=== PATIENT | male | born 1955 | race African-American/Black ===

== ENCOUNTER 2020-09-28 17:30 | Inpatient (IN) ==
[2020-09-28] MEDS ORDERED: SODIUM CHLORIDE 0.9% 500 ML IV STA ×2 (20:01→21:41)
[2020-09-28 20:35] LABS: Basophils % 0.1 % (0.0-0.8); Immature Granulocytes % 0.4 %; Immature Granulocytes Absolute 0.03 #; Lymphocytes # 0.8 10*3/uL (1.4-4.0); Lymphocytes % 10.2 % (21.2-54.2); Mean Corpuscular HGB Conc 32.5 GM/DL (32-36); Mean Corpuscular Volume 82.6 FL (87-102); Mean Platelet Volume 10.9 FL (9.6-12.0); Neutrophils % 84.3 % (38.7-73.9); Platelet Count 274 T/CUMM (130-400); Red Blood Count 4.84 MC/CUMM (3.8-5.5); Red Cell Distribution Width 13.2 % (9.3-17.3); White Blood Count 7.6 T/CUMM (4-12)
[2020-09-28 21:06] LABS: Calcium 7.8 MG/DL (8.5-10.1); Potassium 3.9 MMOL/L (3.5-5.1)
[2020-09-28] MEDS ORDERED: cefTRIAXone 2,000 MG in SODIUM CHLORIDE 0.9% 100 ML IV STA (21:46)
[2020-09-28] MEDS ORDERED: AZITHROMYCIN INJ 500 MG in SODIUM CHLORIDE 0.9% 250 ML IV STA (21:47)
[2020-09-29] MEDS ORDERED: MELATONIN 3 MG TABLET PO PRN (01:05)
[2020-09-29] MEDS ORDERED: DEXTROSE 50% 25 GM/50 ML VIAL IV PRN (01:19)
[2020-09-29] MEDS ORDERED: GLUCAGON 1 MG VIAL IM PRN (01:19)
[2020-09-29] MEDS ORDERED: ONDANSETRON 4 MG/2 ML VIAL IV PRN (01:21)
[2020-09-29] MEDS ORDERED: ACETAMINOPHEN 325 MG TABLET PO PRN (01:21)
[2020-09-29] MEDS ORDERED: NON-FORMULARY MEDICATION (Insulin Degludec [Tresiba Flextouch U-200] 200 unit/mL (3 mL) In PRN (02:10)
[2020-09-29 05:22] LABS: Basophils % 0.2 % (0.0-0.8); Hemoglobin 11.9 GM/DL (14.0-18.0); Immature Granulocytes % 0.4 %; Immature Granulocytes Absolute 0.02 #; Lymphocytes # 0.8 10*3/uL (1.4-4.0); Mean Corpuscular HGB Conc 32.2 GM/DL (32-36); Mean Corpuscular Volume 82.8 FL (87-102); Mean Platelet Volume 10.8 FL (9.6-12.0); Monocytes % 5.5 % (1.7-12.7); Neutrophils % 79.9 % (38.7-73.9); Platelet Count 254 T/CUMM (130-400); Red Blood Count 4.47 MC/CUMM (3.8-5.5); Red Cell Distribution Width 13.2 % (9.3-17.3); White Blood Count 5.6 T/CUMM (4-12)
[2020-09-29 05:30] LABS: INR 1.2; PT Patient Result 12.7 SECS (10.5-12.0)
[2020-09-29 05:45] LABS: Albumin 1.9 G/DL (3.4-5.0); Bilirubin,Total 0.5 MG/DL (0.2-1.0); Calcium 7.9 MG/DL (8.5-10.1); Potassium 3.5 MMOL/L (3.5-5.1); Total Protein 6.3 G/DL (6.4-8.2)
[2020-09-29 05:49] LABS: Ferritin 142.5 ng/ml (26-388)
[2020-09-29] MEDS: INSULIN LISPRO 100 UNIT/ML SUBCUT SCH ×4 (08:03→21:04)
[2020-09-29] MEDS: DEXAMETHASONE 4 MG/1 ML VIAL IV SCH (08:10)
[2020-09-29] MEDS: lisinopriL 20 MG TABLET PO SCH (08:14)
[2020-09-29] MEDS: ENOXAPARIN 40 MG/0.4 ML SYRINGE SUBCUT SCH (08:14)
[2020-09-29] MEDS: FAMOTIDINE 20 MG TABLET PO SCH ×2 (08:14→21:04)
[2020-09-29] MEDS: amLODIPine 5 MG TABLET PO SCH (08:15)
[2020-09-29] MEDS: CHOLECALCIFEROL 1,000 UNIT TABLET PO SCH (08:15)
[2020-09-29] MEDS: ZINC GLUCONATE 50 MG TABLET PO SCH (08:15)
[2020-09-29] MEDS: CETIRIZINE 10 MG TABLET PO SCH (08:15)
[2020-09-29] MEDS: ASCORBIC ACID 500 MG TABLET PO SCH ×2 (08:15→21:04)
[2020-09-29] MEDS ORDERED: LOPERAMIDE 2 MG CAPSULE PO ONE (08:32)
[2020-09-29] MEDS ORDERED: atenoloL 25 MG TABLET PO SCH (09:00)
[2020-09-29] MEDS: ALBUTEROL INHALER 18 GM INH SCH ×2 (12:59→18:46)
[2020-09-29] MEDS: LATANOPROST 0.005% OPH SOLN 2.5 ML BOTTLE BOTH EYES SCH (21:03)
[2020-09-29] MEDS: atenoloL 25 MG TABLET PO SCH (21:04)
[2020-09-29] MEDS: TAMSULOSIN 0.4 MG CAPSULE PO SCH (21:04)
[2020-09-29] MEDS: cefTRIAXone 2,000 MG in SODIUM CHLORIDE 0.9% 100 ML IV SCH (23:05)
[2020-09-30] MEDS: ALBUTEROL INHALER 18 GM INH SCH ×4 (00:20→20:20)
[2020-09-30 05:13] LABS: Hematocrit 37.9 VOL% (42.0-52.0); Hemoglobin 12.4 GM/DL (14.0-18.0); Immature Granulocytes % 0.4 %; Immature Granulocytes Absolute 0.03 #; Lymphocytes # 0.8 10*3/uL (1.4-4.0); Lymphocytes % 11.2 % (21.2-54.2); Mean Corpuscular HGB Conc 32.7 GM/DL (32-36); Mean Corpuscular Volume 81.7 FL (87-102); Mean Platelet Volume 11.1 FL (9.6-12.0); Neutrophils % 84.4 % (38.7-73.9); Platelet Count 333 T/CUMM (130-400); Red Blood Count 4.64 MC/CUMM (3.8-5.5); Red Cell Distribution Width 13.2 % (9.3-17.3); White Blood Count 7.2 T/CUMM (4-12)
[2020-09-30 05:41] LABS: Albumin 1.9 G/DL (3.4-5.0); Bilirubin,Total 0.5 MG/DL (0.2-1.0); Calcium 7.7 MG/DL (8.5-10.1); Osmolality,Calculated 282.7 MOS/KG (273-304); Potassium 4.2 MMOL/L (3.5-5.1); Total Protein 5.9 G/DL (6.4-8.2)
[2020-09-30 05:47] LABS: Calcium 7.9 MG/DL (8.5-10.1); Osmolality,Calculated 281.8 MOS/KG (273-304); Potassium 3.8 MMOL/L (3.5-5.1)
[2020-09-30 05:55] LABS: Platelet Estimate Normal
[2020-09-30 05:56] LABS: Anisocytosis 1+; Burr Cells Few
[2020-09-30] MEDS: DEXAMETHASONE 4 MG/1 ML VIAL IV SCH (08:00)
[2020-09-30] MEDS: INSULIN LISPRO 100 UNIT/ML SUBCUT SCH ×4 (08:05→20:20)
[2020-09-30] MEDS: AZITHROMYCIN 250 MG TABLET PO SCH (08:06)
[2020-09-30] MEDS: ENOXAPARIN 40 MG/0.4 ML SYRINGE SUBCUT SCH (08:06)
[2020-09-30] MEDS: atenoloL 25 MG TABLET PO SCH ×2 (08:06→20:20)
[2020-09-30] MEDS: ASCORBIC ACID 500 MG TABLET PO SCH ×2 (08:06→20:20)
[2020-09-30] MEDS: amLODIPine 5 MG TABLET PO SCH (08:06)
[2020-09-30] MEDS: lisinopriL 20 MG TABLET PO SCH (08:06)
[2020-09-30] MEDS: CETIRIZINE 10 MG TABLET PO SCH (08:06)
[2020-09-30] MEDS: CHOLECALCIFEROL 1,000 UNIT TABLET PO SCH (08:06)
[2020-09-30] MEDS: FAMOTIDINE 20 MG TABLET PO SCH ×2 (08:06→20:20)
[2020-09-30] MEDS: ZINC GLUCONATE 50 MG TABLET PO SCH (08:06)
[2020-09-30] MEDS: TAMSULOSIN 0.4 MG CAPSULE PO SCH (20:20)
[2020-09-30] MEDS: LATANOPROST 0.005% OPH SOLN 2.5 ML BOTTLE BOTH EYES SCH (20:20)
[2020-09-30] MEDS: cefTRIAXone 2,000 MG in SODIUM CHLORIDE 0.9% 100 ML IV SCH (21:36)
[2020-10-01] MEDS: ALBUTEROL INHALER 18 GM INH SCH ×4 (01:25→21:27)
[2020-10-01] MEDS: INSULIN LISPRO 100 UNIT/ML SUBCUT SCH ×4 (07:43→21:27)
[2020-10-01] MEDS: DEXAMETHASONE 4 MG/1 ML VIAL IV SCH (08:00)
[2020-10-01] MEDS: ENOXAPARIN 40 MG/0.4 ML SYRINGE SUBCUT SCH (08:00)
[2020-10-01] MEDS: lisinopriL 20 MG TABLET PO SCH (08:01)
[2020-10-01] MEDS: ASCORBIC ACID 500 MG TABLET PO SCH ×2 (08:01→21:28)
[2020-10-01] MEDS: atenoloL 25 MG TABLET PO SCH ×2 (08:01→21:28)
[2020-10-01] MEDS: AZITHROMYCIN 250 MG TABLET PO SCH (08:01)
[2020-10-01] MEDS: CETIRIZINE 10 MG TABLET PO SCH (08:02)
[2020-10-01] MEDS: CHOLECALCIFEROL 1,000 UNIT TABLET PO SCH (08:02)
[2020-10-01] MEDS: FAMOTIDINE 20 MG TABLET PO SCH ×2 (08:02→21:28)
[2020-10-01] MEDS: amLODIPine 5 MG TABLET PO SCH (08:02)
[2020-10-01] MEDS: ZINC GLUCONATE 50 MG TABLET PO SCH (08:02)
[2020-10-01] MEDS ORDERED: ALPRAZolam 0.25 MG TABLET PO PRN (08:09)
[2020-10-01] MEDS ORDERED: MORPHINE 4 MG/1 ML VIAL IV PRN (08:09)
[2020-10-01] MEDS ORDERED: REMDESIVIR 200 MG in SODIUM CHLORIDE 0.9% 210 ML IV ONE (16:00)
[2020-10-01] MEDS: hydrALAZINE 20 MG/1 ML VIAL IV PRN (17:35)
[2020-10-01] MEDS: TAMSULOSIN 0.4 MG CAPSULE PO SCH (21:27)
[2020-10-01] MEDS: INSULIN GLARGINE 100 UNIT/ML SUBCUT SCH (21:27)
[2020-10-01] MEDS: ENOXAPARIN 60 MG/0.6 ML SYRINGE SUBCUT SCH (21:27)
[2020-10-01] MEDS: cefTRIAXone 2,000 MG in SODIUM CHLORIDE 0.9% 100 ML IV SCH (21:28)
[2020-10-01] MEDS: LATANOPROST 0.005% OPH SOLN 2.5 ML BOTTLE BOTH EYES SCH (21:28)
[2020-10-02] MEDS: ALBUTEROL INHALER 18 GM INH SCH ×4 (02:02→18:34)
[2020-10-02] MEDS: hydrALAZINE 20 MG/1 ML VIAL IV PRN (04:09)
[2020-10-02 05:00] LABS: Basophils # 0.1 10*3/uL (0.0-0.2); Basophils % 0.5 % (0.0-0.8); Hemoglobin 13.3 GM/DL (14.0-18.0); Immature Granulocytes % 1.7 %; Immature Granulocytes Absolute 0.21 #; Lymphocytes # 1.8 10*3/uL (1.4-4.0); Lymphocytes % 14.3 % (21.2-54.2); Mean Corpuscular HGB Conc 33.3 GM/DL (32-36); Mean Corpuscular Volume 79.4 FL (87-102); Monocytes % 6.4 % (1.7-12.7); Neutrophils % 77.1 % (38.7-73.9); Platelet Count 420 T/CUMM (130-400); Red Blood Count 5.04 MC/CUMM (3.8-5.5); Red Cell Distribution Width 13.2 % (9.3-17.3); White Blood Count 12.5 T/CUMM (4-12)
[2020-10-02 05:33] LABS: Alanine Aminotransferase 33 U/L (16-61); Albumin 1.8 G/DL (3.4-5.0); Alkaline Phosphatase 88 U/L (45-117); Aspartate Amino Transferase 41 U/L (0-37); Bilirubin,Total < 0.39 MG/DL (0.2-1.0); Blood Urea Nitrogen 35 MG/DL (7-18); Calcium 8.3 MG/DL (8.5-10.1); Carbon Dioxide 23 MMOL/L (21-32); Estimated Glom Filtration Rate 98 ML/MIN; Ferritin 178.7 ng/ml (26-388); Glucose 126 MG/DL (74-106); Osmolality,Calculated 282.8 MOS/KG (273-304); Potassium 4.1 MMOL/L (3.5-5.1); Sodium 137 MMOL/L (136-145)
[2020-10-02] MEDS: REMDESIVIR 100 MG in SODIUM CHLORIDE 0.9% 100 ML IV SCH (08:37)
[2020-10-02] MEDS: DEXAMETHASONE 4 MG/1 ML VIAL IV SCH (08:38)
[2020-10-02] MEDS: ZINC GLUCONATE 50 MG TABLET PO SCH (08:39)
[2020-10-02] MEDS: atenoloL 25 MG TABLET PO SCH ×2 (08:39→20:19)
[2020-10-02] MEDS: lisinopriL 20 MG TABLET PO SCH (08:39)
[2020-10-02] MEDS: CHOLECALCIFEROL 1,000 UNIT TABLET PO SCH (08:39)
[2020-10-02] MEDS: amLODIPine 5 MG TABLET PO SCH (08:39)
[2020-10-02] MEDS: ENOXAPARIN 60 MG/0.6 ML SYRINGE SUBCUT SCH ×2 (08:39→20:20)
[2020-10-02] MEDS: ASCORBIC ACID 500 MG TABLET PO SCH ×2 (08:40→20:18)
[2020-10-02] MEDS: AZITHROMYCIN 250 MG TABLET PO SCH (08:40)
[2020-10-02] MEDS: FAMOTIDINE 20 MG TABLET PO SCH ×2 (08:40→20:19)
[2020-10-02] MEDS: INSULIN LISPRO 100 UNIT/ML SUBCUT SCH ×4 (08:40→20:19)
[2020-10-02] MEDS: CETIRIZINE 10 MG TABLET PO SCH (08:40)
[2020-10-02] MEDS ORDERED: SODIUM CHLORIDE 0.9% 1,000 ML IV PRN (10:58)
[2020-10-02 18:37] VITALS: BP 197/90
[2020-10-02] MEDS: DOCUSATE SODIUM 100 MG CAPSULE PO SCH (20:18)
[2020-10-02] MEDS: TAMSULOSIN 0.4 MG CAPSULE PO SCH (20:19)
[2020-10-02] MEDS: INSULIN GLARGINE 100 UNIT/ML SUBCUT SCH (20:19)
[2020-10-02] MEDS: LATANOPROST 0.005% OPH SOLN 2.5 ML BOTTLE BOTH EYES SCH (20:20)
[2020-10-02] MEDS: cefTRIAXone 2,000 MG in SODIUM CHLORIDE 0.9% 100 ML IV SCH (22:14)
[2020-10-03] MEDS: ALBUTEROL INHALER 18 GM INH SCH ×4 (01:09→20:02)
[2020-10-03 03:25] LABS: ABG Base Excess 0.6 MMOL/L (-2.5-2.5); ABG HCO3 24.8 MMOL/L (20-26); ABG Oxygen Saturation 92.4 % (95-100); ABG PH 7.463 (7.35-7.45); ABG PO2 64.6 MM HG (80-95); ABG TCO2 20.4 MMOL/L (23-27)
[2020-10-03 04:29] LABS: Basophils # 0.1 10*3/uL (0.0-0.2); Basophils % 0.5 % (0.0-0.8); Hematocrit 39.3 VOL% (42.0-52.0); Hemoglobin 13.3 GM/DL (14.0-18.0); Immature Granulocytes % 3.4 %; Immature Granulocytes Absolute 0.44 #; Lymphocytes # 1.7 10*3/uL (1.4-4.0); Lymphocytes % 13.3 % (21.2-54.2); Mean Corpuscular HGB Conc 33.8 GM/DL (32-36); Mean Platelet Volume 10.8 FL (9.6-12.0); Monocytes % 5.9 % (1.7-12.7); Neutrophils % 76.9 % (38.7-73.9); Platelet Count 393 T/CUMM (130-400); Red Blood Count 4.91 MC/CUMM (3.8-5.5); Red Cell Distribution Width 13.3 % (9.3-17.3); White Blood Count 12.9 T/CUMM (4-12)
[2020-10-03 04:49] LABS: Alanine Aminotransferase 39 U/L (16-61); Albumin 2.1 G/DL (3.4-5.0); Alkaline Phosphatase 87 U/L (45-117); Aspartate Amino Transferase 36 U/L (0-37); Bilirubin,Total < 0.39 MG/DL (0.2-1.0); Blood Urea Nitrogen 40 MG/DL (7-18); Calcium 8.4 MG/DL (8.5-10.1); Carbon Dioxide 24 MMOL/L (21-32); Estimated Glom Filtration Rate 89 ML/MIN; Glucose 100 MG/DL (74-106); Osmolality,Calculated 284.7 MOS/KG (273-304); Potassium 3.9 MMOL/L (3.5-5.1); Sodium 138 MMOL/L (136-145); Total Protein 7.1 G/DL (6.4-8.2)
[2020-10-03 04:59] LABS: Band Neutrophils 2 % (0-10); Hypochromasia 1+; Lymphocytes 21 % (20-55); Microcytosis 1+; Platelet Estimate Adequate; Segmented Neutrophils 75 % (50-85); Total Cells Counted 100
[2020-10-03 05:17] LABS: Ferritin 154.8 ng/ml (26-388)
[2020-10-03] MEDS: lisinopriL 20 MG TABLET PO SCH (08:35)
[2020-10-03] MEDS: CHOLECALCIFEROL 1,000 UNIT TABLET PO SCH (08:35)
[2020-10-03] MEDS: ZINC GLUCONATE 50 MG TABLET PO SCH (08:36)
[2020-10-03] MEDS: ASCORBIC ACID 500 MG TABLET PO SCH ×2 (08:36→20:23)
[2020-10-03] MEDS: AZITHROMYCIN 250 MG TABLET PO SCH (08:36)
[2020-10-03] MEDS: amLODIPine 5 MG TABLET PO SCH (08:36)
[2020-10-03] MEDS: FAMOTIDINE 20 MG TABLET PO SCH ×2 (08:36→20:22)
[2020-10-03] MEDS: ENOXAPARIN 60 MG/0.6 ML SYRINGE SUBCUT SCH ×2 (08:40→20:22)
[2020-10-03] MEDS: DOCUSATE SODIUM 100 MG CAPSULE PO SCH ×2 (08:40→20:22)
[2020-10-03] MEDS: atenoloL 25 MG TABLET PO SCH ×2 (08:44→20:22)
[2020-10-03] MEDS: INSULIN LISPRO 100 UNIT/ML SUBCUT SCH ×4 (08:45→20:21)
[2020-10-03] MEDS: CETIRIZINE 10 MG TABLET PO SCH (08:57)
[2020-10-03] MEDS: DEXAMETHASONE 4 MG/1 ML VIAL IV SCH (08:57)
[2020-10-03] MEDS: REMDESIVIR 100 MG in SODIUM CHLORIDE 0.9% 100 ML IV SCH (11:11)
[2020-10-03] MEDS: cefTRIAXone 1,000 MG in SODIUM CHLORIDE 0.9% 100 ML IV SCH (20:21)
[2020-10-03] MEDS: TAMSULOSIN 0.4 MG CAPSULE PO SCH (20:22)
[2020-10-03] MEDS: INSULIN GLARGINE 100 UNIT/ML SUBCUT SCH (20:22)
[2020-10-03] MEDS: LATANOPROST 0.005% OPH SOLN 2.5 ML BOTTLE BOTH EYES SCH (20:23)
[2020-10-03] MEDS: hydrALAZINE 20 MG/1 ML VIAL IV PRN (22:34)
[2020-10-04] MEDS: ALBUTEROL INHALER 18 GM INH SCH ×4 (02:06→18:26)
[2020-10-04] MEDS: atenoloL 25 MG TABLET PO SCH ×2 (08:00→20:43)
[2020-10-04] MEDS: CETIRIZINE 10 MG TABLET PO SCH (08:00)
[2020-10-04] MEDS: FAMOTIDINE 20 MG TABLET PO SCH ×2 (08:00→20:44)
[2020-10-04] MEDS: ASCORBIC ACID 500 MG TABLET PO SCH ×2 (08:00→20:43)
[2020-10-04] MEDS: lisinopriL 20 MG TABLET PO SCH (08:01)
[2020-10-04] MEDS: DOCUSATE SODIUM 100 MG CAPSULE PO SCH ×2 (08:01→20:43)
[2020-10-04] MEDS: amLODIPine 5 MG TABLET PO SCH (08:01)
[2020-10-04] MEDS: ZINC GLUCONATE 50 MG TABLET PO SCH (08:01)
[2020-10-04] MEDS: CHOLECALCIFEROL 1,000 UNIT TABLET PO SCH (08:01)
[2020-10-04] MEDS: INSULIN LISPRO 100 UNIT/ML SUBCUT SCH ×4 (08:57→20:43)
[2020-10-04] MEDS: DEXAMETHASONE 4 MG/1 ML VIAL IV SCH (08:57)
[2020-10-04] MEDS: ENOXAPARIN 60 MG/0.6 ML SYRINGE SUBCUT SCH ×2 (08:57→20:42)
[2020-10-04] MEDS: REMDESIVIR 100 MG in SODIUM CHLORIDE 0.9% 100 ML IV SCH (09:53)
[2020-10-04] MEDS: cefTRIAXone 1,000 MG in SODIUM CHLORIDE 0.9% 100 ML IV SCH (20:42)
[2020-10-04] MEDS: INSULIN GLARGINE 100 UNIT/ML SUBCUT SCH (20:42)
[2020-10-04] MEDS: LATANOPROST 0.005% OPH SOLN 2.5 ML BOTTLE BOTH EYES SCH (20:44)
[2020-10-04] MEDS: TAMSULOSIN 0.4 MG CAPSULE PO SCH (20:44)
[2020-10-04] MEDS: hydrALAZINE 20 MG/1 ML VIAL IV PRN (21:00)
[2020-10-05] MEDS: ALBUTEROL INHALER 18 GM INH SCH ×2 (02:07→08:18)
[2020-10-05] MEDS: hydrALAZINE 20 MG/1 ML VIAL IV PRN (04:25)
[2020-10-05 05:42] LABS: Basophils # 0.1 10*3/uL (0.0-0.2); Basophils % 0.5 % (0.0-0.8); Eosinophils # 0.1 10*3/uL (0.0-0.87); Eosinophils % 0.9 % (0.00-10.9); Hematocrit 39.2 VOL% (42.0-52.0); Hemoglobin 13.1 GM/DL (14.0-18.0); Immature Granulocytes % 5.8 %; Immature Granulocytes Absolute 0.63 #; Lymphocytes # 1.8 10*3/uL (1.4-4.0); Lymphocytes % 16.1 % (21.2-54.2); Mean Corpuscular HGB Conc 33.4 GM/DL (32-36); Mean Corpuscular Volume 80.7 FL (87-102); Mean Platelet Volume 10.4 FL (9.6-12.0); Monocytes % 9.1 % (1.7-12.7); Neutrophils % 67.6 % (38.7-73.9); Platelet Count 418 T/CUMM (130-400); Red Blood Count 4.86 MC/CUMM (3.8-5.5); Red Cell Distribution Width 13.6 % (9.3-17.3); White Blood Count 10.9 T/CUMM (4-12)
[2020-10-05 05:57] LABS: Calcium 8.1 MG/DL (8.5-10.1); Osmolality,Calculated 291.1 MOS/KG (273-304); Potassium 4.2 MMOL/L (3.5-5.1)
[2020-10-05 06:09] LABS: Eosinophils 2 % (0-10); Hypochromasia Slight; Lymphocytes 17 % (20-55); Microcytosis Slight; Platelet Estimate Adequate; Segmented Neutrophils 76 % (50-85); Total Cells Counted 100
[2020-10-05] MEDS: INSULIN LISPRO 100 UNIT/ML SUBCUT SCH (07:30)
[2020-10-05] MEDS: DEXAMETHASONE 4 MG/1 ML VIAL IV SCH (08:17)
[2020-10-05] MEDS: FAMOTIDINE 20 MG TABLET PO SCH (08:17)
[2020-10-05] MEDS: atenoloL 25 MG TABLET PO SCH (08:17)
[2020-10-05] MEDS: DOCUSATE SODIUM 100 MG CAPSULE PO SCH (08:17)
[2020-10-05] MEDS: lisinopriL 20 MG TABLET PO SCH (08:17)
[2020-10-05] MEDS: ZINC GLUCONATE 50 MG TABLET PO SCH (08:17)
[2020-10-05] MEDS: ASCORBIC ACID 500 MG TABLET PO SCH (08:17)
[2020-10-05] MEDS: CHOLECALCIFEROL 1,000 UNIT TABLET PO SCH (08:17)
[2020-10-05] MEDS: amLODIPine 5 MG TABLET PO SCH (08:18)
[2020-10-05] MEDS: ENOXAPARIN 60 MG/0.6 ML SYRINGE SUBCUT SCH (08:22)
[2020-10-05] MEDS: CETIRIZINE 10 MG TABLET PO SCH (08:22)
[2020-10-05] MEDS: REMDESIVIR 100 MG in SODIUM CHLORIDE 0.9% 100 ML IV SCH (09:30)
== END 2020-10-05 10:55 | disposition home or self-care (01) | DRG 177 ==
LOC: N.ED 17:30 → N.EDINP 23:56 → SUATTDRO 23:56 → N.CC 09-29 01:09
PROVIDERS: ADMIT Internal Medicine; ATTEND Internal Medicine